=== PATIENT | female | born 1965 | race Caucasian/White ===

== ENCOUNTER 2019-04-24 14:24 | Observation (INO) | payer SELFPAY ==
[2019-04-24 14:49] LABS: #Eosinphils 0.1 thou/uL (0.0-0.7); #Lymphocytes 1.2 thou/uL (1.20-3.40); #Monocytes 0.6 thou/uL (0.11-0.59); #Neutrophils 10.1 thou/uL (1.40-6.50); %Basophils 0.2 % (0.0-1.0); %Eosinophils 0.6 % (0.0-10.0); %Lymphocytes 9.6 % (21.0-51.0); %Monocytes 5.2 % (0.0-10.0); %Neutrophils 84.4 % (42.0-75.0); Hemoglobin 11.7 g/dL (12.0-16.0); Mean Corpuscular HGB CONC 32.2 g/dL (32.0-36.0); Mean Corpuscular Hemoglobin 29.4 pg (27.0-31.0); Mean Corpuscular Volume 91.4 fL (78.0-98.0); Mean Platelet Volume 8.1 fL (7.4-10.4); Platelet Count 305 thou/uL (130-400); RBC Distribution Width 13.5 % (11.5-14.5); Red Blood Cell (RBC) Count 3.98 mill/uL (4.20-5.40)
[2019-04-24 15:14] LABS: ALT (SGPT) 68 U/L (8-55); AST (SGOT) 201 U/L (5-34); Albumin 4.3 g/dL (3.5-5.0); Alkaline Phosphatase 311 U/L (40-150); Anion Gap 11 mmol/L (10-20); BUN (Urea Nitrogen) 10 mg/dL (9.8-20.1); Bilirubin, Total 1.1 mg/dL (0.2-1.2); Calc. Creatinine Clearance 0 mL/min (70-130); Calcium 9.5 mg/dL (7.8-10.44); Carbon Dioxide 26 mmol/L (22-29); Chloride 104 mmol/L (98-107); Estimated GFR-MDRD 76; Globulin 3.1 g/dL (2.4-3.5); Glucose 122 mg/dL (70-105); Lipase 18 U/L (8-78); Potassium 4.2 mmol/L (3.5-5.1); Protein, Total 7.4 g/dL (6.0-8.3); Sodium 137 mmol/L (136-145)
[2019-04-24 15:55] LABS: Bacteria/HPF None Seen HPF (None Seen); Bilirubin Negative (Negative); Blood, Urine Trace (Negative); Clarity Clear (Clear); Glucose, Urine (Dipstick) Normal (Negative); Leukocyte Negative Leu/uL (Negative); Nitrite Negative (Negative); Protein, Urine (Dipstick) Negative (Neg-Trace); RBC/HPF 0-3 HPF (0-3); Squamous Epithelial 0-3 HPF (0-3); Urobilinogen 3 mg/dL (Less than 2); WBC/HPF 0-3 HPF (0-3)
[2019-04-24] MEDS ORDERED: Ondansetron ODT 4 MG TAB ONE (17:13)
--- NOTE | 2019-04-24 18:48 | ULT ---
GALLBLADDER ULTRASOUND: HISTORY: Right upper quadrant pain. FINDINGS: Real-time imaging of the right upper quadrant shows echogenic density with shadowing from the region of the gallbladder fossa, compatible with a contracted gallbladder with stones. The common duct is i n the 3 mm range. The visualized liver parenchyma shows no focal findings. The liver measures 18 cm in length. The pancreas is obscured. The right kidney is normal in size and not obstructed. The t echnologist reports a positive ultrasound Martinez sign. IMPRESSION: Multiple gallstones within a contracted gallbladder with a normal caliber common duct. POS: RIOS
[2019-04-24] MEDS ORDERED: Nicotine 14 MG PATCH TOP SCH (19:00)
[2019-04-24] MEDS ORDERED: Ondansetron PF 4 MG/2 ML Vial IVP PRN (20:47)
[2019-04-24] MEDS ORDERED: Ondansetron ODT 4 MG TAB SL PRN (20:47)
[2019-04-24] MEDS ORDERED: Sodium Chloride 0.9% 1,000 ML IV SCH (21:00)
[2019-04-24 21:11] VITALS: BMI 31.8
[2019-04-25] MEDS ORDERED: Ondansetron ODT 4 MG TAB PO PRN (07:35)
[2019-04-25] MEDS ORDERED: Ondansetron PF 4 MG/2 ML Vial IVP PRN ×2 (07:35→11:48)
[2019-04-25] MEDS ORDERED: Sodium Chloride 0.9% 1,000 ML IV SCH (07:45)
--- NOTE | 2019-04-25 09:21 | HP ---
CHIEF COMPLAINT: Epigastric abdominal pain. HISTORY OF PRESENT ILLNESS: The patient is a 53-year-old female, who was admitted with severe midepigastric and right upper quadrant pain radiating to back, associated with nausea and vomiting. She had a fever to 100 degrees. No dark urine. No light stools. Ultrasound showed multiple cholelithiasis. PAST MEDICAL HISTORY: Otherwise, okay. PAST SURGERIES: Skin cancer, eye surgery, tonsil and adenoidectomy, section, and foot surgery. MEDICATIONS: 1. Naprosyn. 2. DayQuil. ALLERGIES: TO PENICILLIN, ERYTHROMYCIN AND POSSIBLY LEVAQUIN. SOCIAL HISTORY: She is . Smokes less than 1 pack per day. Rare alcohol. FAMILY HISTORY: Lung cancer in mom. Hypertension. PHYSICAL EXAMINATION: VITAL SIGNS: Temperature 98.1, pulse 64, and blood pressure 102/64. GENERAL: Well-developed, well-nourished female, in no apparent distress. HEENT: No jaundice. LUNGS: Clear. HEART: Regular rate and rhythm. ABDOMEN: Soft. She has a well-healed surgical scar, low midline. No significant tenderness at this time. EXTREMITIES: Unremarkable. LABORATORY DATA: White count 12, H and H of 11 and 36, and platelet count 305. Electrolytes are fine. Glucose elevated at 122. AST 201, ALT 68, and alkaline phosphatase 311. Ultrasound showing multiple gallstones. Normal common duct. ASSESSMENT: Severe biliary colic with elevated liver functions. PLAN: Laparoscopic cholecystectomy with cholangiogram. CONSENT: I have discussed planned procedure as well as risk of bleeding, infection, injury to bile duct, injury to bowel, need to open, she understands and gives informed consent. Job ID: [id number]
[2019-04-25] MEDS ORDERED: Iothalamate Meglumine 60% 50 ML VIAL FS ONE (09:59)
[2019-04-25] MEDS ORDERED: Bupivacaine/Epinephrine 0.25% 30 ML VIAL ONE (09:59)
[2019-04-25] MEDS ORDERED: Fentanyl 100 MCG/2 ML VIAL ONE ×3 (10:12→12:07)
[2019-04-25] MEDS ORDERED: Morphine 4 MG/ML VIAL ONE (10:12)
[2019-04-25] MEDS ORDERED: SUGAMMADEX SODIUM 500 MG/5 ML VIAL ONE (11:30)
[2019-04-25] MEDS ORDERED: Albuterol Sulfate 1.25 MG/3 ML NEB ONE (11:43)
[2019-04-25] MEDS ORDERED: Promethazine HCl 25 MG/ML VIAL IM PRN (11:48)
[2019-04-25] MEDS ORDERED: Dextrose 5% in Water 1,000 ML IV PRN (11:48)
[2019-04-25] MEDS ORDERED: hydrALAZINE 20 MG/ML VIAL SLOW IVP PRN (11:48)
[2019-04-25] MEDS ORDERED: Mag-Al 1200 mg/1200 mg/30 ML UDCUP PO PRN (11:48)
[2019-04-25] MEDS ORDERED: Morphine 2 MG/ML SYRINGE SLOW IVP PRN (11:48)
[2019-04-25] MEDS ORDERED: Morphine 4 MG/ML VIAL SLOW IVP PRN (11:48)
[2019-04-25] MEDS ORDERED: Calcium Carbonate 500 MG ChewTAB PO PRN (11:48)
[2019-04-25] MEDS ORDERED: HYDROcodone/Acetaminophen 10/325 mg Tablet PO PRN ×2 (11:48)
[2019-04-25] MEDS ORDERED: Dextrose 50% Abboject 50 ML SYRINGE SLOW IVP PRN (11:48)
[2019-04-25] MEDS ORDERED: Promethazine HCl 25 MG/ML VIAL ONE (11:56)
[2019-04-25] MEDS ORDERED: D5 1/2 NS w/20 mEq KCL 1,000 ML IV SCH (12:00)
--- NOTE | 2019-04-25 12:18 | RAD ---
OPERATIVE CHOLANGIOGRAM: Date: 04/25/19 HISTORY: Intraoperative film. FINDINGS: Single film is presented for interpretation and shows filling of a nondilated common duct with emptyi ng into the duodenum. No filling defects. IMPRESSION: Unremarkable operative cholangiogram. POS: T[facility]
--- NOTE | 2019-04-25 13:32 | OP ---
DATE OF PROCEDURE: 04/25/2019 PREOPERATIVE DIAGNOSIS: Cholecystitis. PROCEDURES PERFORMED: Laparoscopic cholecystectomy with intraoperative cholangiogram. INDICATIONS: A 53-year-old female, who has been having severe midepigastric pain radiating to back associated with nausea. Ultrasound showed multiple cholelithiasis. LFTs were elevated. FINDINGS: Negative cholangiogram. Multiple stones within the gallbladder, which is full of stones. There were lot of adhesions to the gallbladder. DESCRIPTION OF PROCEDURE: After informed consent was obtained, the patient was taken to the operating room, given general endotracheal anesthesia, placed in supine position. Abdomen was prepped and draped in usual fashion. Local anesthesia infiltrated subcutaneously and deep subumbilical incision was performed. Subcu divided sharply, the fascia grasped and 2 stay sutures of 0 Vicryl placed through side of midline. Midline incised. Digital palpation revealed quite a bit of adhesions. These were taken down using blunt and sharp dissection and this allowed me to insert the blunt trocar. Pneumoperitoneum was created to a pressure of 15 mmHg. A 0 degree laparoscope inserted under direct vision. Three 5 mm ports were placed subcostally. The gallbladder was grasped and advanced superiorly. There were quite a bit of adhesions to the gallbladder. These were taken down using blunt and sharp dissection. The peritoneum was opened up distally to dissect out the cystic duct artery in critical view. A clip was placed at the base of the gallbladder and Arrow cholangiocatheter inserted. Intraoperative cholangiogram was performed utilizing fluoroscopy showing free flow into the duodenum. No filling defects. Normal intrahepatic ducts. The cystic duct was triply ligated and divided. The artery triply ligated and divided. The gallbladder removed from its fossa utilizing electrocautery. It was placed in endosac, removed from the abdomen in the endosac through the umbilical incision. Hemostasis assured. Trocars and retractors removed. The fascia closed with interrupted 2-0 Vicryl. The skin closed with interrupted 4-0 Rapide. Dermabond applied. The patient tolerated the procedure well, transferred to Recovery in good condition. Sponge and needle count verified correct x2. Job ID: [id number]
[2019-04-25 15:31] VITALS: BP 115/57; TEMP 97.6
[2019-04-25] MEDS ORDERED: Ketorolac Tromethamine 30 MG/ML VIAL IVP SCH (18:00)
[2019-04-25] MEDS ORDERED: Famotidine/PF 20 mg/2ml Vial SLOW IVP SCH (21:00)
[2019-04-25] MEDS ORDERED: Famotidine 20 MG TAB PO SCH (21:00)
[2019-04-26] MEDS ORDERED: Enoxaparin Sodium 40 MG/0.4 ML SYRINGE SC SCH (09:00)
== END 2019-04-25 17:02 | disposition home or self-care (01) ==
LOC: ERS 14:24 → SURG B 18:49
PROVIDERS: ADMIT Surgery; ATTEND Surgery
PROC: 0FT44ZZ Resection of Gallbladder, Percutaneous Endoscopic Approach (ICD-10-PCS; principal; 2019-04-25)
PROC: BF141ZZ Fluoroscopy of Gallbladder, Bile Ducts and Pancreatic Ducts using Low Osmolar Contrast (ICD-10-PCS; 2019-04-25)
DX: K80.12 Calculus of gallbladder with acute and chronic cholecystitis without obstruction (principal); F17.210 Nicotine dependence, cigarettes, uncomplicated; Z79.1 Long term (current) use of non-steroidal anti-inflammatories (NSAID); Z88.0 Allergy status to penicillin; Z88.1 Allergy status to other antibiotic agents
CPT/HCPCS: 36415; 47532; 76705; 80053; 81003; 81015; 83690; 85025; 88304; 93005; 96361; 96365; 96374; G0378; J1610; J1956; J2270; J2550; J3010; Q0162

== ENCOUNTER 2019-10-25 14:28 | Emergency (ER) | payer SELFPAY ==
[2019-10-25 16:00] LABS: #Basophils 0.1 thou/uL (0.0-0.2); #Eosinphils 0.2 thou/uL (0.0-0.7); #Lymphocytes 2.7 thou/uL (1.20-3.40); #Monocytes 0.5 thou/uL (0.11-0.59); #Neutrophils 4.2 thou/uL (1.40-6.50); %Basophils 0.7 % (0.0-1.0); %Eosinophils 2.4 % (0.0-10.0); %Lymphocytes 35.3 % (21.0-51.0); %Monocytes 6.5 % (0.0-10.0); %Neutrophils 55.1 % (42.0-75.0); Hemoglobin 12.9 g/dL (12.0-16.0); Mean Corpuscular HGB CONC 33.9 g/dL (32.0-36.0); Mean Corpuscular Hemoglobin 30.2 pg (27.0-31.0); Mean Corpuscular Volume 88.9 fL (78.0-98.0); Mean Platelet Volume 8.1 fL (7.4-10.4); Platelet Count 268 thou/uL (130-400); RBC Distribution Width 12.6 % (11.5-14.5); Red Blood Cell (RBC) Count 4.26 mill/uL (4.20-5.40); White Blood Cell (WBC) Count 7.6 thou/uL (4.8-10.8)
[2019-10-25 16:02] LABS: Bilirubin Negative (Negative); Blood, Urine Negative (Negative); Clarity Clear (Clear); Glucose, Urine (Dipstick) Normal (Negative); Leukocyte Negative Leu/uL (Negative); Nitrite Negative (Negative); Protein, Urine (Dipstick) Negative (Neg-Trace); Urobilinogen Normal mg/dL (Less than 2)
[2019-10-25 16:09] LABS: Pregnancy Test - Urine (BHCG) Negative (Negative); Pregu Control Background? CLEAR/WHITE (CLR/WHITE); Pregu Control Bar Appear? YES (CONTROL BAR); Specific Gravity 1.006 (1.002-1.036)
[2019-10-25 16:20] LABS: ALT (SGPT) 16 U/L (8-55); AST (SGOT) 26 U/L (5-34); Albumin 4.5 g/dL (3.5-5.0); Alkaline Phosphatase 105 U/L (40-110); Anion Gap 12 mmol/L (10-20); BUN (Urea Nitrogen) 11 mg/dL (9.8-20.1); Bilirubin, Total 0.4 mg/dL (0.2-1.2); Calc. Creatinine Clearance 0 mL/min (70-130); Calcium 9.2 mg/dL (7.8-10.44); Carbon Dioxide 23 mmol/L (22-29); Chloride 106 mmol/L (98-107); Estimated GFR-MDRD 77; Globulin 3.1 g/dL (2.4-3.5); Glucose 108 mg/dL (70-105); Lipase 20 U/L (8-78); Protein, Total 7.6 g/dL (6.0-8.3); Sodium 137 mmol/L (136-145)
[2019-10-25] MEDS ORDERED: Ondansetron PF 4 MG/2 ML Vial ONE (17:04)
[2019-10-25] MEDS ORDERED: Sucralfate 1 GM/10 ML UDCUP ONE (17:04)
[2019-10-25] MEDS ORDERED: Pantoprazole 40 MG VIAL ONE (17:04)
[2019-10-25] MEDS ORDERED: HYDROcodone/Acetaminophen 5/325 mg Tablet ONE (18:09)
--- NOTE | 2019-10-25 19:36 | CT ---
CT OF THE ABDOMEN AND PELVIS WITH IV CONTRAST: 10/25/19 INDICATION: History of epigastric abdominal pain. COMPARISON: Prior CT of the abdomen and pelvis with contrast dated 01/30/11. FINDINGS: There is air space opacity in the left lower lobe, lingula, anterolateral right lower lobe and portio ns of the right middle lobe suspicious for pneumonia. Recommend correlation. There is a small hiatal hernia. There is mild splenomegaly which is new measuring 13.8 cm. The gallbladder is surgically absent. No focal hepatic lesion is evident. Pancreas, adrenal glands, and kidneys appear within normal limits. No focal renal lesion or hydroneph rosis is evident. There are mild calcifications involving the abdominal aorta. No enlarged lymph nodes are evident. No free fluid is identified. There is a normal appendix in the right lower quadrant. There is a stable fibroid uterus. The bladder is unremarkable appearing. The unopacified large and small bowel reveal no definite acute abnormality. Small bowel is normal suresh iber. No definite acute osseous abnormality is evident. There is scattered degenerative and osteoarthritic change. There is mild levoscoliosis of the lumbar spine centered at L3-4. IMPRESSION: 1. Patchy air space opacity involving the lung bases suspicious for multifocal pneumonia. Recomm end correlation with clinical examination. 2. Interval development of mild splenomegaly. 3. Interval cholecystectomy. 4. Stable fibroid uterus. POS: BH
--- NOTE | 2019-10-25 19:57 | RAD ---
EXAM: Chest PA and lateral: HISTORY: Chest pain COMPARISON: None FINDINGS: Heart: Normal cardiac silhouette Aorta: Unremarkable Pulmonary vessels: Normal Costophrenic angles: Costophrenic angles are clear. Lungs: Chronic lung parenchymal changes are suspected. Left lower lobe infiltrate. Pneumothorax: No pneumothorax Osseous structures: No osseous abnormalities IMPRESSION: Left lower lobe infiltrate, superimposed upon chronic lung parenchymal changes. Continued surveillanc e to ensure resolution.
[2019-10-25] MEDS ORDERED: cefTRIAXone\\ROCEPHIN 1 GM VIAL ONE (19:59)
== END 2019-10-25 20:52 | disposition home or self-care (01) ==
LOC: ERS 14:28
DX: J18.9 Pneumonia, unspecified organism (principal); M19.90 Unspecified osteoarthritis, unspecified site; F41.9 Anxiety disorder, unspecified; F32.9 Major depressive disorder, single episode, unspecified; F17.210 Nicotine dependence, cigarettes, uncomplicated; Z79.899 Other long term (current) drug therapy
CPT/HCPCS: 71046; 74177; 80053; 81003; 81025; 83690; 84484; 85025; 93005; 96361; 96365; 96372; 96375; C9113; J0500; J0696; J2405